=== PATIENT | male | born 1955 | race Caucasian/White ===

== ENCOUNTER 2017-04-19 18:21 | Emergency (ER) | payer MEDICAID, OTHER ==
[~2017-04-19] VITALS: Ht 152.4 cm; Wt 70.0 kg
[2017-04-19 18:28] VITALS: Ht 152.4 cm; Wt 70.0 kg
[2017-04-19] MEDS ORDERED: IBUP400T22 PO (19:24)
[2017-04-19] MEDS ORDERED: SULF1TAB31 PO (19:24)
[2017-04-19] MEDS ORDERED: CEPH-443 PO (19:24)
--- NOTE | 2017-04-19 19:58 | ERD ---
ER Documentation Chief Complaint Chief Complaint Redness and swelling surrounding right big toenail for 2 weeks HPI 61-year-old male presents to emergency department for complaints of redness and swelling on the medial aspect of the skin surrounding the right big toenail for 2 weeks now. Patient is complaining of pain sharp pain, 4/10 scale, worst upon touching the area. Patient denies any fever or chills. Patient is diabetic. Patient denies any trauma in affected area. Patient denies any numbness or tingling. ROS All systems reviewed and are negative except as per history of present illness. Medications Home Meds Active Scripts Ibuprofen* (Motrin*) 400 Mg Tab, 400 MG PO Q6H Y for PAIN AND OR ELEVATED TEMP, #30 TAB Prov:COLETTE LAW NP 04/19/17 Cephalexin* (Keflex*) 500 Mg Capsule, 500 MG PO QID for 10 Days, CAP Prov:COLETTE LAW NP 04/19/17 Sulfamethoxazole/Trimethoprim* (Bactrim Ds* Tablet) 1 Each Tablet, 1 TAB PO BID , #20 TAB Prov:COLETTE LAW NP 04/19/17 Allergies Allergies: Coded Allergies: No Known Allergy (Unverified , 04/19/17) PMhx/Soc Medical and Surgical Hx: pt denies Medical Hx, pt denies Surgical Hx FmHx Family History: No coronary disease, No diabetes, No other Physical Exam Vitals Vital Signs Date Time Temp Pulse Resp B/P Pulse Ox O2 Delivery O2 Flow Rate FiO2 04/19/17 18:28 98.1 99 18 146/82 99 Physical Exam GENERAL: The patient is well developed and appropriate for usual state of health, in no apparent distress. CHEST: Clear to auscultation bilaterally. There are no rales, wheezes or rhonchi. HEART: Regular rate and rhythm. No murmurs, clicks, rubs or gallops. No S3 or S4. ABDOMEN: Soft, nontender and nondistended. Good bowel sounds. No rebound or guarding. No gross peritonitis. No gross organomegaly or masses. No Gibbons sign or McBurney point tenderness. BACK: No midline or flank tenderness. EXTREMITIES: Equal pulses bilaterally. There is no peripheral clubbing, cyanosis or edema. No focal swelling or erythema. Full range of motion. Grossly neurovascularly intact. NEURO: Alert and oriented. Cranial nerves 2-12 intact. Motor strength in all 4 extremities with 5/5 strength. Sensation grossly intact. Normal speech and gait. SKIN: Noted some redness and swelling surrounding the skin medial to the right big toenail, no fluctuance noted, no purulent discharge. No ingrown toenail noted. There is no apparent ecchymosis or petechia. The skin is warm and dry. HEMATOLOGIC AND LYMPHATIC: There is no evidence of excessive bruising or lymphedema. No gross cervical, axillary, or inguinal lymphadenopathy. Procedures/MDM Medical decision making: This is if this was likely is consistent with paronychia, no ingrown toenail noted at this time. No symptoms of any abscess, incision and drainage is indicated at this time. Pt is diabetic and was recommended to see podiatry specialist for further evaluation and management. Vision is no symptoms of any neurovascular compromise. Prescription was given ibuprofen, Keflex, Bactrim, is advised to follow-up with primary care doctor in 2 days for recheck, see podiatry specialist. Patient was advised to return to emergency department for any worsening symptoms. Disposition: Home. Stable. Departure Diagnosis: Primary Impression: Paronychia Condition: Stable Patient Instructions: Paronychia Additional Instructions: see foot doctor for further evaluation and management COLETTE LAW NP Apr 19, 2017 19:58
== END 2017-04-19 19:23 | disposition home or self-care (01) ==
LOC: E/R 18:21
DX: L03.031 Cellulitis of right toe (principal)
CPT/HCPCS: 99282